=== PATIENT | female | born 1935 | race Hispanic/Latino ===

== ENCOUNTER → 2017-09-02 | Outpatient (CLI) | payer OTHER, MEDICARE | END | disposition home or self-care (01) | LOC: OIH 11:16 | PROVIDERS: ATTEND Family Medicine | DX: M17.12 Unilateral primary osteoarthritis, left knee (principal) | CPT/HCPCS: 73560 ==

== ENCOUNTER → 2018-05-05 | Outpatient (CLI) | payer OTHER, MEDICARE | END | disposition home or self-care (01) | LOC: OIH 15:22 | PROVIDERS: ATTEND Family Medicine | DX: Z00.01 Encounter for general adult medical examination with abnormal findings (principal); M47.894 Other spondylosis, thoracic region; I10 Essential (primary) hypertension; E11.9 Type 2 diabetes mellitus without complications; M16.11 Unilateral primary osteoarthritis, right hip; M17.12 Unilateral primary osteoarthritis, left knee; E78.5 Hyperlipidemia, unspecified | CPT/HCPCS: 71046 ==

== ENCOUNTER → 2018-06-24 | Outpatient (CLI) | payer OTHER, MEDICARE | END | disposition home or self-care (01) | LOC: RAH 12:36 | PROVIDERS: ATTEND Family Medicine | DX: I61.9 Nontraumatic intracerebral hemorrhage, unspecified (principal) | CPT/HCPCS: 70450 ==

== ENCOUNTER → 2019-12-23 | Outpatient (CLI) | payer OTHER, MEDICARE | END | disposition home or self-care (01) | LOC: OIH 10:55 | PROVIDERS: ATTEND Family Medicine | DX: M85.852 Other specified disorders of bone density and structure, left thigh (principal); R10.2 Pelvic and perineal pain | CPT/HCPCS: 73502; 73552 ==

== ENCOUNTER 2023-08-12 11:39 | Emergency (ER) | payer OTHER, MEDICARE ==
[~2023-08-12] VITALS: Ht 160 cm; Wt 70.3 kg
[2023-08-12 12:25] VITALS: BP 176/90; PULSE 64; RESP 18
[2023-08-12] MEDS ORDERED: ACETAMINOPHEN 500 MG TABLET PO ONE (18:30)
== END 2023-08-12 20:01 | disposition home or self-care (01) ==
LOC: EDH 11:39
DX: S10.93XA Contusion of unspecified part of neck, initial encounter (principal); I10 Essential (primary) hypertension; Z86.73 Personal history of transient ischemic attack (TIA), and cerebral infarction without residual deficits; W01.0XXA Fall on same level from slipping, tripping and stumbling without subsequent striking against object, initial encounter; Y93.89 Activity, other specified; Y92.89 Other specified places as the place of occurrence of the external cause; Y99.8 Other external cause status
CPT/HCPCS: 71045; 72125

== ENCOUNTER → 2023-08-12 | Outpatient (CLI) | payer OTHER, MEDICARE | END | disposition home or self-care (01) | LOC: RAH 11:01 | PROVIDERS: ATTEND Family Medicine | DX: R06.2 Wheezing (principal) | CPT/HCPCS: 71045 ==